=== PATIENT | female | born 1975 | race Caucasian/White ===

== ENCOUNTER 2025-05-16 12:01 | Emergency (ER) | payer OTHER, SELFPAY ==
--- NOTE | 2025-05-16 12:09 | ED_ITS ---
HPI - General Adult General Chief complaint: Unspecified Stated complaint: Blood Pressure Problem Time Seen by Provider: 05/16/25 12:23 Mode of arrival: ambulatory Limitations: no limitations History of Present Illness HPI narrative: 49-year-old female presents with concern for blood pressure she reports a diagnosis of high blood pressure, she takes metoprolol. She reports her blood pressure systolic is usually in the 130s. Reports she was at her specialist recently and her systolic was 160. She started checking her blood pressure at home and the numbers were similar. She denies headache, vision changes, dizziness. MD complaint: High blood pressure Related Data Home Medications ?Medication ?Instructions ?Recorded ?Confirmed ?Last Taken ?Type duloxetine 60 mg capsule,delayed mg PO 05/16/25 Unkno wn History release fenofibrate 160 mg tablet mg 05/16/25 Unknown History magnesium oxide 400 mg (241.3 mg mg 05/16/25 Unknown History magnesium) tablet metoprolol succinate 50 mg mg PO 05/16/25 Unknown His tory tablet,extended release 24 hr pantoprazole 40 mg tablet,delayed mg PO 05/16/25 Unkn own History release rosuvastatin 40 mg tablet mg 05/16/25 Unknown History Allergies Allergy/AdvReac Type Severity Reaction Status Date / Time No Known Allergies Allergy Verified 05/16/25 12:16 Review of Systems Review of Systems: CONSTITUTIONAL: Denies malaise, chills, sweats, or fever. EYES: Denies visual changes CARDIOVASCULAR: Denies chest pain, palpitations, or edema. RESPIRATORY: Denies cough or dyspnea. NEUROLOGIC: Denies numbness, weakness, or headache. All systems reviewed & are unremarkable except as noted in HPI and below PMFSH Comments At time of signature, agree with nursing past medical, surgical, social and family history. There is no relevant family history pertinent to the presenting complaint Exam Narrative: GENERAL: Well-appearing, well-nourished, and in no acute distress. HEAD: Normocephalic, atraumatic. EYES: PERRLA, sclera clear, and EOMI. ENT: Nares clear, no rhinorrhea or epistaxis. Mucous membranes moist. NECK: Supple. CHEST: No respiratory distress. Clear to auscultation. No bony deformities, no asymmetry. Speaks in full sentences. HEART: Regular rate and rhythm. No murmur heard. Normal peripheral pulses. SKIN: Warm, dry, no visible rash. NEURO: Alert and oriented x3. No focal deficits. Cranial nerves II through XII grossly intact PSYCH: Normal mood and affect Course Course Emergency Course: Patient is aware of diagnosis, understands and agrees to treatment plan. Anticipatory guidance given. Patient agrees to follow-up as directed and is aware of reasons to seek care at the emergency department. Portions of this record may have been created with voice recognition software Level of Care: Express Care Visit Vital Signs Vital signs: Reviewed. Medical Decision Making MDM Narrative Medical decision making narrative: The patient was evaluated by myself in the [facility] care. History is obtained from patient who is an independent historian and physical exam was performed.? Available medical records were reviewed at this time. ? Exam findings show no acute concerns or changes; patient is non-toxic appearing and is in no distress. Patient is appropriate for outpatient treatment and follow-up. ? I have evaluated and discussed social determinants of health with the patient that could potentially impact subsequent diagnosis and treatment plans. ? Differential diagnosis and treatment plan were discussed with the patient. Patient agrees with discussion and after shared medical decision making agrees with plan of care. All questions were answered to the patient's satisfaction. Critical Care Time Critical Care Time Critical Care Time: No Discharge Plan Discharge Clinical Impression: Hypertension Patient Disposition: Home Condition: Stable Instructions: Hypertension (ED) Additional Instructions: 1) Please follow-up with your primary care doctor in the next 1-2 days. 2) If you have any worsening of symptoms or any other urgent concerns please go to the ER. 3) please take an extra dose of metoprolol daily until you can see your primary care provider for further evaluation. Continue taking your other home medications as usual. 4) Please read and follow information included in discharge instructions. Patient Language: Maltese Prescriptions: No Action metoprolol succinate 50 mg tablet extended release 24 hr PO magnesium oxide 400 mg (241.3 mg magnesium) tablet pantoprazole 40 mg tablet,delayed release (DR/EC) PO rosuvastatin 40 mg tablet duloxetine 60 mg capsule,delayed release(DR/EC) PO fenofibrate 160 mg tablet Follow-up/Referrals: UNKNOWN,DOCTOR [Primary Care Provider] Stand Alone Forms: Work/School Release IP Time of Disposition: 12:31
[2025-05-16 12:10] VITALS: BP 208/79; PULSE 67; RESP 16; TEMP 36.2; O2SAT 99
[2025-05-16 12:23] VITALS: BP 170/84
--- OUTSIDE RECORDS SUMMARY | 2025-05-16 12:27 | XMS_ITS | Encounter Summary ---
Author Organization [facility] Address 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 - [address] [address] Pallavi Sinha MD [address] [facility] [address] [place] [address] documented as of this encounter Visit Diagnoses Diagnosis Other current maternal conditions classifiable elsewhere, antepartum- Primary documented in this encounter Care Teams Anaesthetic Technician Relationship Specialty Start Date End Date Serge Ley MD [address] [place] [address] Dr Berg [address] [place] [phone] PCP - General Internal Medicine 02/21/20 documented as of this encounter
--- OUTSIDE RECORDS SUMMARY | 2025-05-16 12:27 | XMS_ITS | Encounter Summary ---
Author Organization [facility] Address 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 [place] [address] Pallavi Sinha MD [address] [place] [address] documented as of this encounter Visit Diagnoses Not on filedocumented in this encounter Care Teams Community Administrator Relationship Specialty Start Date End Date Serge Ley MD [address] [place] [address] Dr [address] [place] [address] PCP - General Internal Medicine 02/21/20 documented as of this encounter
--- OUTSIDE RECORDS SUMMARY | 2025-05-16 12:27 | XMS_ITS | Encounter Summary ---
Author Organization [facility] Address 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 [address] [place] [address] Pallavi Sinha MD [address] [place] [address] documented as of this encounter Visit Diagnoses Not on filedocumented in this encounter Care Teams Bricklayer Sewer Relationship Specialty Start Date End Date Serge Ley MD [address] [place] [address] Dr Berg [address] [place] [address] PCP - General Internal Medicine 02/21/20 documented as of this encounter
--- OUTSIDE RECORDS SUMMARY | 2025-05-16 12:27 | XMS_ITS | Encounter Summary ---
Author Organization [facility] Address 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 [place] [address] Pallavi Sinha MD [address] [place] [address] documented as of this encounter Visit Diagnoses Not on filedocumented in this encounter Care Teams Ditch Digger Relationship Specialty Start Date End Date Serge Ley MD [address] [place] [address] Dr Berg [address] [place] [address] PCP - General Internal Medicine 02/21/20 documented as of this encounter
--- OUTSIDE RECORDS SUMMARY | 2025-05-16 12:27 | XMS_ITS | Encounter Summary ---
Author Organization [facility] Address 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 [facility] 300 [place] [address] Pallavi Sinha MD [address] [address] documented as of this encounter Visit Diagnoses Not on filedocumented in this encounter Care Teams Drum Tester Relationship Specialty Start Date End Date Serge Ley MD [address] [place] [address] Dr Berg [address] [place] [phone] PCP - General Internal Medicine 02/21/20 documented as of this encounter
--- OUTSIDE RECORDS SUMMARY | 2025-05-16 12:27 | XMS_ITS | Encounter Summary ---
Author Organization [facility] Address [address] [place] [address] Care Team Providers Care Senior Process Engineer Name Role Phone Serge Ley MD Primary Care Provider Encounter Details Date Type Department Care Team (Late Contact Info) Description 04/22/2007 Outpatient Historical [facility] [id number] [place], [place] [address] [place] [address] Bre Stuart MD [address] [facility] [address] [place] [address] Social History Tobacco Use Types Packs/Day Years Used Date Smoking Tobacco: Never Assessed Comments Unknown Sex and Gender Information Value Date Recorded Sex Assigned at Not on file 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 Women's Health - [facility] [address] [place] [address] Pallavi Sinha MD [address] [facility] 300 [place] [address] documented as of this encounter Visit Diagnoses Not on filedocumented in this encounter Care Teams Senior Process Engineer Relationship Specialty Start Date End Date Serge Ley MD [address] [place] [address] Dr [address] [place] [address] PCP - General Internal Medicine 02/21/20 documented as of this encounter
--- OUTSIDE RECORDS SUMMARY | 2025-05-16 12:27 | XMS_ITS | Encounter Summary ---
Author Organization [facility] Address 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 300 [place] [address] Pallavi Sinha MD [address] [address] documented as of this encounter Visit Diagnoses Not on filedocumented in this encounter Care Teams Plastic Extruding Machine Operator Relationship Specialty Start Date End Date Serge Ley MD [address] [place] [address] Dr Berg [address] [place] [phone] PCP - General Internal Medicine 02/21/20 documented as of this encounter
--- OUTSIDE RECORDS SUMMARY | 2025-05-16 12:27 | XMS_ITS | Encounter Summary ---
Author Organization [facility] Address [address] [place] [address] Care Team Providers Care Slip Cover Estimator Name Role Phone Serge Ley MD Primary Care Provider Encounter Details Date Type Department Care Team (Late Contact Info) Description 08/02/2007 Outpatient Historical 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 [place] [address] Pallavi Sinha MD [address] [facility] 300 [place] [address] documented as of this encounter Visit Diagnoses Not on filedocumented in this encounter Care Teams Slip Cover Estimator Relationship Specialty Start Date End Date Serge Ley MD [address] [place] [address] Dr Berg [address] [place] [phone] PCP - General Internal Medicine 02/21/20 documented as of this encounter
--- OUTSIDE RECORDS SUMMARY | 2025-05-16 12:27 | XMS_ITS | Encounter Summary ---
Author Organization [facility] Address [address] [place] [address] Care Team Providers Care Litigation Support Analyst Name Role Phone Serge Ley MD Primary Care Provider Encounter Details Date Type Department Care Team (Late Contact Info) Description 06/07/2007 Outpatient Historical [facility] Maternal and Ground [address] [place] [address] Jonnie Stearns MD [address] [facility] [address], [place] [address] Social History Tobacco Use Types Packs/Day Years Used Date Smoking Tobacco: Never Assessed Comments Unknown Sex and Gender Information Value Date Recorded Sex Assigned at Not on file Legal Sex Female 5:25 AM COMB 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 [place] [address] Pallavi Sinha MD [address] [facility] 300 [place] [address] documented as of this encounter Visit Diagnoses Not on filedocumented in this encounter Care Teams Litigation Support Analyst Relationship Specialty Start Date End Date Serge Ley MD [address] [place] [address] Dr [address] [place] [phone] PCP - General Internal Medicine 02/21/20 documented as of this encounter
--- OUTSIDE RECORDS SUMMARY | 2025-05-16 12:27 | XMS_ITS | Encounter Summary ---
Author Organization [facility] Address [address] [place] [address] Care Team Providers Care Rn Home Health Name Role Phone Serge Ley MD Primary Care Provider Encounter Details Date Type Department Care Team (Late Contact Info) Description 05/24/[address] 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 [place] [address] Pallavi Sinha MD [address] [place] [address] documented as of this encounter Visit Diagnoses Not on filedocumented in this encounter Care Teams Rn Home Health Relationship Specialty Start Date End Date Serge Ley MD [address] [place] [address] Dr Berg [address] [place] [address] PCP - General Internal Medicine 02/21/20 documented as of this encounter
--- OUTSIDE RECORDS SUMMARY | 2025-05-16 12:28 | XMS_ITS | Clinical Summary ---
Author Organization [facility] Address [address] [place] [address] Phone Care Team Providers Care Batch Maker Name Role Phone Serge Ley MD Primary Care Provider Allergies Active Allergy Reactions Criticality Noted Date Comments Sulfamethoxazole-Trimethoprim Hives High 2008 Medications carBAMazepine (TEGretol) 200 mg tablet TK 1 T PO TID 0 Active ergocalciferol (VITAMIN D2) 50,000 unit capsule TK 2 CS PO Q 7 DAYS 0 Active levonorgestreL (Mirena) 21 mcg/24 hours (8 yrs) 52 mg IUD by Intrauterine route. Active bempedoic acid-ezetimibe (Nexlizet) 180-10 mg Tablet 1 tablet(s), Oral, daily, 90 tablet(s), Tablet(s), 3, 3, [id number], [id number], 168, cm, 05/04/24 14:52:00 CDT, Height, 119, kg, 05/04/24 14:52:00 CDT, Weight 4 Active DULoxetine (CYMBALTA) 60 mg Capsule, Delayed Release(E.C.) Take 60 mg by mouth daily. Active METOPROLOL SUCCINATE ORAL Take by mouth. Active triamcinolone acetonide (KENALOG) 0.1 % Ointment Apply to affected area 2 times daily. 30 Gram 5 Active Active Problems Problem Noted Date Diagnosed Date Other psoriasis 01/10/2013 Migraines 04/11/2011 Encounters Date Type Department Care Team Description 05/09/2025 External Device Data STL ABSTRACTION Provider, Abstract 05/02/2025 External Device Data STL ABSTRACTION Provider, Abstract 05/02/2025 External Device Data ST[facility] ABSTRACTION Provider, Abstract 05/02/2025 External Device Data ST[facility] ABSTRACTION Provider, Abstract 04/25/2025 External Device Data STL ABSTRACTION Provider, Abstract 04/20/2025 3:20 PM CDT Office Visit [facility] [address] [place] [address] Pallavi Sinha MD Well woman exam with routine gynecological exam (Primary Dx); Encounter for screening breast examination and discussion of breast self examination; Breast cancer screening by mammogram 03/29/2025 External Device Data STL ABSTRACTION Provider, Abstract 03/21/2025 External Device Data STL ABSTRACTION Provider, Abstract 03/21/2025 External Device Data STL ABSTRACTION Provider, Abstract 03/20/2025 3:00 PM CDT - 03/20/2025 11:59 PM CDT Hospital Encounter [facility] [address] [address] [place] [address] Pallavi Sinha MD Discharge Disposition: Home or Self Care 03/20/2025 Results Follow-Up [facility] [address] [place] [address] Pallavi Sinha MD MAMMO 3D SHERIN SCREEN BILAT W OR WO CAD 03/08/2025 External Device Data STL ABSTRACTION Provider, Abstract 03/07/2025 External Device Data STL ABSTRACTION Provider, Abstract from Last 3 Months Family History Medical History Relation Name Comments Heart Disease Brother hiigh choleste rol Healthy Daughter Colon Cancer Father Metastatic Heart Disease Father high cholester ol Hypertension Father Other Father Dementia Heart Disease Mother high cholester ol Hypertension Mother Healthy Son Breast Cancer Neg Hx Ovarian Cancer Neg Hx Relation Name Status Comments Brother Alive Daughter Alive Father Alive Maternal Grandfather Maternal Grandmother Mother Alive Paternal Grandfather Paternal Grandmother Son Alive Social History Tobacco Use Types Packs/Day Years Used Date Smoking Tobacco: Every Day Cigarettes 0.5 15 Smokeless Tobacco: Never Tobacco Cessation:Ready to Q uit: No; Counseling Given: Yes Alcohol Use Standard Drinks/Week Comments Yes 0 (1 standard drink = 0.6 oz pure alcohol) 3-4 glasses of wine, 3-4 nights per week Feeling Safe Answer Date Recorded Are you in a relationship wi th someone who hurts you emotionally and/or physically? No 09/29/2024 Comments No Sex and Gender Information Value Date Recorded Sex Assigned at Not on file Legal Sex Female 5:25 AM DIRECTOR OF RADIOLOGY Gender Identity Not on file Sexual Orientation Not on file Last Filed Vital Signs Vital Sign Reading Time Taken Comments Blood Pressure 148/82 04/20/2025 3:40 PM CDT Pulse 95 09/29/2024 8:48 PM DIRECTOR OF RADIOLOGY Temperature 36.4 C (97.6 F) 09/29/2024 8:48 PM DIRECTOR OF RADIOLOGY Respiratory Rate 18 09/29/2024 8:48 PM DIRECTOR OF RADIOLOGY Oxygen Saturation 100% 09/29/2024 8:48 PM DIRECTOR OF RADIOLOGY Inhaled Oxygen Concentration - - Weight 101.2 kg (223 lb) 04/20/2025 3:40 PM CDT Height 170.2 cm (5' 7) 04/20/2025 3:40 PM CDT Body Mass Index 34.93 04/20/2025 3:40 PM CDT Plan of Treatment Upcoming Encounters Date Type Department Care Team (Late st Contact Info) Description 04/23/2026 1:40 PM CDT Office Visit [facility] [address] [place] [address] Pallavi Sinha MD [address] [place] [address] Health Maintenance Due Date Last Done Comments Pre-Diabetes and Diabetes Screening 1976 HEPATITIS B VACCINES (1 of 3 - 19+ 3-dose series) 1995 COLORECTAL SCREENING 2021 Colorectal Cancer Screening 2021 FIT-DNA Q 3 years 2021 FIT/FOBT Q 1 year 2021 Flex Sig/CT Colonography Q 5 years 2021 INFLUENZA VACCINE (#1) 2025 COVID-19 Vaccine (2024-2 6 season) 2025 08/23/2021, 12/27/2020, 12/06/2020 BREAST CANCER SCREENING 03/20/2026 03/20/20 25, 03/11/2024, 03/22/2020, Additional history exists PAP SMEAR 01/04/2027 01/05/2024, 03/24, 09/15/2017, Additional history exists DTAP/TDAP/TD VACCINES (3 - T d or Tdap) 12/17/2028 12/17/2018, 08/02/2013 CERVICAL CANCER SCREENING 01/04/2029 HPV/Cotest (21-29) 01/04/2029 01/05/2024, 0 04/09/2020, 09/15/2017 HPV/Cotest (30-65) 01/04/2029 01/05/2024, 0 04/09/2020, 09/15/2017 Procedures Procedure Name Priority Date/Time Associated Diagnosis Comments MAMMO 3D SHERIN SCREEN BILAT W OR WO CAD Routine 03/20/2025 3:17 PM CDT Encounter for mammogram to establish baseline mammogram CERV/VAG CYTO AGE BASED SCREEN PAP Routine 01/05/2024 2:53 PM CDT Well woman exam with routine gynecological exam Screening for cervical cancer from Last 3 Months or Most Recently Relevant to Health Maintenance Results * MAMMO 3D SHERIN SCREEN BILAT W OR WO CAD (03/20/2025 3:17 PM CDT) Anatomical Region Laterality Modality Breast Bilateral Mammography 03/20/2025 3:17 PM CDT Impressions 03/20/2025 3:37 PM CDT IMPRESSION: No suspicious findings to suggest malignancy in either breast. Annual mammography is recommended. OVERALL FINAL ASSESSMENT: BI-RADS CATEGORY 1: Negative. DICTATION LOCATION: [facility] 03/20/2025 3:37 PM CDT BILATERAL SCREENING DIGITAL MAMMOGRAM WITH 3D TOMOSYNTHESIS AND CAD DATE: 03/20/2025 3:17 PM HISTORY: Routine screening. TECHNIQUE: Full-field digital craniocaudal and mediolateral oblique projections of both breasts were obtained. Low-dose full-field digital breast tomosynthesis examination was performed with 2D and 3D acquisitions. Examination is read in conjunction with computer aided detection. COMPARISON: Prior available breast imaging exams. BREAST COMPOSITION: The breasts are heterogeneously dense, which may obscure small masses FINDINGS: No suspicious mass, suspicious microcalcifications, or architectural distortion is identified in either breast. Computer aided detection was used in the interpretation of this examination. Pallavi Sinha MD MAMMO ORDERABLES Final Result * CERV/VAG CYTO AGE BASED SCREEN PAP (01/05/2024 2:53 PM CDT) COMMENT (PAP): [facility] [place] Comment: This order for age-based cervical cancer and STI screening follows ACOG guidelines(PB 168, 140, CVN658). See individual assays for performing site location. CLINICAL INFORMATION [facility] Comment:None given LAST MENSTRUAL PERIOD [facility] [place] [facility] Comment:NONE GIVEN PREV PAP: [facility] [place] [facility] Comment:NONE GIVEN PREV BX: [facility] [place] Comment:NONE GIVEN SOURCE [facility] [place] Comment:Endocervix ADEQUACY: [facility] Comment: Satisfactory for evaluation. Endocervical/transformation zone component present. Age and/or menstrual status not provided PAP INTERP [facility] [place] Comment: Cytology Results: Negative for intraepithelial lesion or malignancy. COMMENT (PAP TEST) [facility] [place] Comment: This Pap test has been evaluated with computer assisted technology. SUPERVISOR PHOSPHORIC ACID: [facility] [place] Comment: BENITES, CT(ASCP) CT Screening location: [facility] [address] [place] [address] [address] [facility] Comment: EXPLANATORY NOTE: The Pap is a screening test for cervical cancer. It is not a diagnostic test and is subject to false negative and false positive results. It is most reliable when a satisfactory sample, regularly obtained, is submitted with relevant clinical findings and history, and when the Pap result is evaluated along with historic and current clinical information. HPV E6/E7 Not Detected Not Detected [facility] Comment: Methodology: Internal Combustion Engine Inspector-Mediated Amplification This assay detects E6/E7 viral messenger RNA (mRNA) from 14 high-risk HPV types (16,18,31,33,35,39,45,51,52,56,58,59,66,68). Cervical sources are required for HPV testing. If a vaginal source from a patient who has had a total hysterectomy with removal of cervix was submitted, please contact the testing laboratory for alternative testing options. For additional information, please refer to http://education.Event Innovation/faq/PCE783p1 (This link if provided for information/ educational purposes only.) Test Performed at: [facility] [id number] [facility] [place] [address] Reji ROTH Genital SWAB OF ENDOCERVIX / Unknown 01/05/2024 2:53 PM CDT 01/05/2024 11:19 PM CDT us Pallavi Sinha MD PATHOLOGY/CYTOLOGY ORDERABLES [facility] Result [facility] [phone] [facility] [address] [place] [address] from Last 3 Months or Most Recently Relevant to Health Maintenance Insurance GENERIC PAYOR Member Subscriber Plan / Payer (Ef fective 2025-Present) Name:Stacy Hampton Relation to Subscriber:Self Name:Stacy Hampton Payer ID:Not on file Type:Other Address: [place] [id number] Care Teams Batch Maker Relationship Specialty Start Date End Date Serge Ley MD [address] [place] [address] [place] [id number] PCP - General Internal Medicine 02/21/20
--- OUTSIDE RECORDS SUMMARY | 2025-05-16 12:28 | XMS_ITS | Encounter Summary ---
Author Organization [facility] Address [address] [place] [address] Care Team Providers Care Sugar Refinery Supervisor Name Role Phone Serge Ley MD Primary Care Provider Encounter Details Date Type Department Care Team (Late Contact Info) Description 03/20/2025 Results Follow-Up [facility] [address] [place] [address] Pallavi Sinha MD [address] [place] [address] MAMMO 3D SHERIN SCREEN BILAT W OR WO CAD Social History Tobacco Use Types Packs/Day Years Used Date Smoking Tobacco: Every Day Cigarettes 0.5 15 Smokeless Tobacco: Never Alcohol Use Standard Drinks/Week Comments Yes 0 [...] file Legal Sex Female 5:25 AM DIRECTOR BUSINESS SYSTEMS Gender Identity Not on file Sexual Orientation Not on file documented as of this encounter Plan of Treatment Upcoming Encounters Date Type Department Care Team (Late Contact Info) Description 04/23/2026 1:40 PM CDT Office Visit [facility] [address] [place] [address] Pallavi Sinha MD [address] [place] [address] documented as of this encounter Visit Diagnoses Not on filedocumented in this encounter Care Teams Sugar Refinery Supervisor Relationship Specialty Start Date End Date Serge Ley MD [address] [place] [address] PCP - General Internal Medicine 02/21/20 documented as of this encounter
--- OUTSIDE RECORDS SUMMARY | 2025-05-16 12:28 | XMS_ITS | Encounter Summary ---
Author Organization [facility] Address [address] [place] [address] Care Team Providers Care Golf Course Laborer Name Role Phone Serge Ley MD Primary Care Provider Encounter Details Date Type Department Care Team (Latest Contact Info) Description 09/23/2006 Outpatient Historical [facility] AND Gloria Santoyo MD NO ADDRESS ON FILE Other Psoriasis and Similar Disorders (Primary Dx) Social History Tobacco Use Types Packs/Day Years Used Date Smoking Tobacco: Never Assessed Comments Unknown Sex and Gender Information Value Date Recorded Sex Assigned at Not on file Legal Sex Female 5:25 AM TEAM PHYSICIAN Gender Identity Not on file Sexual Orientation Not on file documented as of this encounter Plan of Treatment Upcoming Encounters Date Type Department Care Team (Late st Contact Info) Description 04/23/2026 1:40 PM CDT Office Visit [facility] [address] [address] Pallavi Sinha MD [address] [place] [address] documented as of this encounter Procedures Procedure Name Priority Date/Time Associated Diagnosis Comments TSH WITH REFLEX FT4 AND FT3 Routine 09/23/2006 1:43 PM TEAM PHYSICIAN JOAN WITH TITER Routine 09/23/2006 1:43 PM TEAM PHYSICIAN CBC WITH DIFFERENTIAL Routine 09/23/2006 1:43 PM TEAM PHYSICIAN CBC WITH DIFFERENTIAL Routine 09/23/2006 1:43 PM TEAM PHYSICIAN SEDIMENTATION RATE Routine 09/23/2006 1: 43 PM TEAM PHYSICIAN C-REACTIVE PROTEIN Routine 09/23/2006 1: 43 PM TEAM PHYSICIAN LIPID PANEL Routine 09/23/2006 1:43 PM TEAM PHYSICIAN COMPREHENSIVE METABOLIC PANEL Routine 09/23/2006 1:43 PM TEAM PHYSICIAN documented in this encounter Results * JOAN WITH TITER (09/23/2006 1:43 PM TEAM PHYSICIAN) [facility] JOAN SCREEN NEGATIVE NEGATIVE INTERFACE SYSTEM Comment: Lab test performed by: [facility] [address] [place] [address] DR MILTON FOX MD 09/23/2006 1:43 PM TEAM PHYSICIAN us Gloria Yancey MD CHEMISTRY ORDERABLES Edit ed Performing Organization Address [facility] de Phone Number INTERFACE SYSTEM Refer to clinic/hospital department * CBC WITH DIFFERENTIAL (09/23/2006 1:43 PM TEAM PHYSICIAN) [facility] NEUTROPHILS 46 45 - 70 % INTERFAC E SYSTEM LYMPHOCYTES 40 16 - 45 % INTERFAC E SYSTEM MONOCYTES 9 3 - 13 % INTERFACE SYSTEM EOSINOPHILS 4 0 - 7 % INTERFAC E SYSTEM BASOPHILS 0 0 - 2 % INTERFACE SYSTEM NEUTROPHIL ABSOLUTE 3.37 1.90 - 7.00 K/uL INTERFACE SYSTEM LYMPHOCYTE ABSOLUTE 2.96 0.70 - 4.50 K/uL INTERFACE SYSTEM MONOCYTE ABSOLUTE 0.66 0.10 - 1.30 K/uL INTERFACE SYSTEM EOSINOPHIL ABSOLUTE 0.30 0.00 - 0.70 K/uL INTERFACE SYSTEM BASOPHILS ABSOLUTE 0.03 0.00 - 0.20 K/uL INTERFACE SYSTEM 09/23/2006 1:43 PM TEAM PHYSICIAN us Gloria Yancey MD HEMATOLOGY ORDERABLES Charles simi Performing Organization Address [facility] Co de Phone Number INTERFACE SYSTEM Refer to clinic/hospital department * (ABNORMAL) CBC WITH DIFFERENTIAL (09/23/2006 1:43 PM TEAM PHYSICIAN) Pathologist [facility] WBC 7.3 4.0 - 9.8 K/uL INTERFACE SYSTEM RBC 4.38 3.90 - 4.90 M/uL INTERFACE SYSTEM HEMOGLOBIN 12.5 11.8 - 14.8 g/dL INTERFACE SYSTEM HEMATOCRIT 37.0 35.5 - 44.0 % INTERFACE SYSTEM MCV 84.5 82.0 - 99.0 fL INTERFACE SYSTEM MCH 28.5 27.2 - 32.6 pg INTERFACE SYSTEM MCHC 33.8 31.5 - 35.5 % INTERFACE SYSTEM RDW 13.5 11.5 - 14.5 % INTERFACE SYSTEM RDW-STDEV 41.5 37.1 - 48.7 fL INTERFACE SYSTEM PLATELETS 306 140 - 350 K/uL INTERFACE SYSTEM MPV 9.0(L) 9.3 - 12.4 fL INTERFACE SYSTEM 09/23/2006 1:43 PM TEAM PHYSICIAN us Gloria Yancey MD HEMATOLOGY ORDERABLES Charles simi Performing Organization Address [facility] Phone Number INTERFACE SYSTEM Refer to clinic/hospital department * TSH WITH REFLEX FT4 AND FT3 (09/23/2006 1:43 PM TEAM PHYSICIAN) [facility] TSH 0.81 0.27 - 4.20 uU/mL INTERFACE SYSTEM 09/23/2006 1:43 PM TEAM PHYSICIAN us Gloria Yancey MD CHEMISTRY ORDERABLES Edit ed Performing Organization Address [facility] Phone Number INTERFACE SYSTEM Refer to clinic/hospital department * SEDIMENTATION RATE (09/23/2006 1:43 PM TEAM PHYSICIAN) [facility] ESR (SEDIMENTATION RATE) 10 0 - 20 mm/hr INTERFACE SYSTEM 09/23/2006 1:43 PM TEAM PHYSICIAN us Gloria Yancey MD HEMATOLOGY ORDERABLES Charles simi Performing Organization Address [facility] Phone Number INTERFACE SYSTEM Refer to clinic/hospital department * C-REACTIVE PROTEIN (09/23/2006 1:43 PM TEAM PHYSICIAN) CRP 0.2 0.0 - 0.8 mg/dL INTERFACE SYSTEM 09/23/2006 1:43 PM TEAM PHYSICIAN us Gloria Yancey MD CHEMISTRY ORDERABLES Edit ed Performing Organization Address [facility] de Phone Number INTERFACE SYSTEM Refer to clinic/hospital department * (ABNORMAL) LIPID PANEL (09/23/2006 1:43 PM TEAM PHYSICIAN) CHOLESTEROL 172 100 - 199 mg/dL INTERFACE SYSTEM TRIGLYCERIDE 194(H) 10 - 149 mg/dL INTERFACE SYSTEM HDL 39(L) 40 - 59 mg/dL INTERFACE SYSTEM CHOL/HDL RATIO 4.4 2.0 - 5.0 INTER FACE SYSTEM LDL CALCULATED 94 <=99 mg/dL INTERFACE SYSTEM LIPID PANEL COMMENT See Below INTERFACE SYSTEM Comment: The adult ATP and pediatric NCEP classifications for lipids are available on the [facility] Intranet at: [email or web address] Select: Lab Policies and Procedures Select: Reference Ranges - Lipids 09/23/2006 1:43 PM TEAM PHYSICIAN us Gloria Yancey MD CHEMISTRY ORDERABLES Edit ed Performing Organization Address [facility] Phone Number INTERFACE SYSTEM Refer to clinic/hospital department * COMPREHENSIVE METABOLIC PANEL (09/23/2006 1:43 PM TEAM PHYSICIAN) GLUCOSE 89 65 - 99 mg/dL INTERFACE SYSTEM CREATININE 0.59 0.51 - 0.95 mg/dL INTERFACE SYSTEM CALCIUM 8.6 8.4 - 10.2 mg/dL INTERFACE SYSTEM ALKALINE PHOSPHATASE 53 35 - 104 U/L INTERFACE SYSTEM AST 14 12 - 32 U/L INTERFACE SYSTEM ALT 21 0 - 31 U/L INTERFACE SYSTEM TOTAL PROTEIN 7.0 6.3 - 8.6 g/dL INTERFACE SYSTEM ALBUMIN 4.5 3.4 - 4.8 g/dL INTERFACE SYSTEM BILIRUBIN TOTAL 0.3 0.2 - 1.0 mg/dL INTERFACE SYSTEM BUN 12 6 - 20 mg/dL INTERFACE SYSTEM SODIUM 139 135 - 145 mmol/L INTERFACE SYSTEM POTASSIUM 4.2 3.5 - 4.9 mmol/L INTERFACE SYSTEM CHLORIDE 103 96 - 108 mmol/L INTERFACE SYSTEM CO2 26 22 - 30 mmol/L INTERFACE SYSTEM GFR, >60 >=60 mL/min/1.7 sq meter INTERFACE SYSTEM GFR >60 >=60 mL/min/1.7 sq meter INTERFACE SYSTEM Comment: Estimated GFR rate interpretative information for both Americans and non- Americans is available on the [facility] Intranet at: [email or web address] Select: Lab Policies and Procedures Select: Reference Ranges - GFR 09/23/2006 1:43 PM TEAM PHYSICIAN [facility] Tato Yancey MD CHEMISTRY ORDERABLES Edit ed INTERFACE SYSTEM Refer to clinic/hospital department documented in this encounter Visit Diagnoses Diagnosis Other psoriasis- Primary documented in this encounter Care Teams Golf Course Laborer Relationship Specialty Start Date End Date Serge Ley MD [address] [place] [address] Dr Berg [address] [place] [phone] PCP - General Internal Medicine 02/21/20 documented as of this encounter
--- OUTSIDE RECORDS SUMMARY | 2025-05-16 12:28 | XMS_ITS | Encounter Summary ---
Author Organization [facility] Address [address] [place] [address] Care Team Providers Care Line Analyst Name Role Phone Serge Ley MD Primary Care Provider Encounter Details Date Type Department Care Team (Latest Contact Info) Description 05/25/2005 Inpatient Historical HIS PATIENT IN A BED Dany Hussein MD NO ADDRESS ON FILE Tyler Haile MD [address] [facility] [address] [place] [address] FACE/BROW PRESENT-DELIVERED (Primary Dx) Social History Tobacco Use Types Packs/Day Years Used Date Smoking Tobacco: Never Assessed Comments Unknown Sex and Gender Information Value Date Recorded Sex Assigned at Not on file 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 [place] [address] Pallavi Sinha MD [address] [place] [address] documented as of this encounter Procedures Procedure Name Priority Date/Time Associated Diagnosis Comments RUBELLA IGG Routine 05/25/2005 10:19 PM CDT RPR Routine 05/25/2005 10:19 PM CDT HEPATITIS B SURFACE ANTIGEN Routine 05/25/2005 10:00 PM CDT DIC PROFILE Routine 05/25/2005 3:55 PM CDT CBC WITH DIFFERENTIAL Routine 05/25/2005 3:55 PM CDT CBC WITH DIFFERENTIAL Routine 05/25/2005 3:55 PM CDT URIC ACID Routine 05/25/2005 3:55 PM CDT AST Routine 05/25/2005 3:55 PM CDT LACTATE DEHYDROGENASE Routine 05/25/2005 3:55 PM CDT documented in this encounter Results * RUBELLA IGG (05/25/2005 10:19 PM CDT) [facility] RUBELLA IGG 2.06 EIA Value INTERFAC E SYSTEM Comment: EIA VALUE EXPLANATION OF TEST RESULTS --------- <0.91 NEGATIVE - NO RUBELLA IGG ANTIBODY DETECTED. 0.91 - 1.09 EQUIVOCAL > OR = 1.10 POSITIVE - RUBELLA IGG ANTIBODY DETECTED. THE PRESENCE OF RUBELLA IGG ANTIBODY SUGGESTS IMMUNIZATION OR PAST OR CURRENT INFECTION WITH RUBELLA VIRUS. Lab test performed by: [facility] [address] BERENICE BUCKLEY MD 05/25/2005 10:1 9 PM CDT Tyler Haile MD CHEMISTRY ORDERABLES Final Res ult INTERFACE SYSTEM Refer to clinic/hospital department * RPR (05/25/2005 10:19 PM CDT) [facility] RPR NON-REACT VALERIE NON-REACT VALERIE INTERFACE SYSTEM Comment: Lab test performed by: [employer] [facility] David BUCKLEY MD 05/25/2005 10:1 9 PM CDT Tyler Haile MD CHEMISTRY ORDERABLES Final Res ult Performing Organization Address [facility] Phone Number INTERFACE SYSTEM Refer to clinic/hospital department * HEPATITIS B SURFACE ANTIGEN (05/25/2005 10:00 PM CDT) Pathologist [facility] HEPATITIS B SURFACE AG Nonreactive Nonreactive INTERFACE SYSTEM Comment: Performed by [facility]. Results called to Rosita at 05/26/2005 10:50 PM and read back verified. 05/25/2005 10:0 0 PM CDT Tyler Haile MD CHEMISTRY ORDERABLES Final Res ult Performing Organization Address [facility] Phone Number INTERFACE SYSTEM Refer to clinic/hospital department * (ABNORMAL) CBC WITH DIFFERENTIAL (05/25/2005 3:55 PM CDT) NEUTROPHILS 71(H) 45 - 70 % INTERFAC E SYSTEM LYMPHOCYTES 21 16 - 45 % INTERFAC E SYSTEM MONOCYTES 7 3 - 13 % INTERFACE SYSTEM EOSINOPHILS 1 0 - 7 % INTERFAC E SYSTEM BASOPHILS 0 0 - 2 % INTERFACE SYSTEM NEUTROPHIL ABSOLUTE 8.90(H) 1.90 - 7.00 K/uL INTERFACE SYSTEM LYMPHOCYTE ABSOLUTE 2.65 0.70 - 4.50 K/uL INTERFACE SYSTEM MONOCYTE ABSOLUTE 0.89 0.10 - 1.30 K/uL INTERFACE SYSTEM EOSINOPHIL ABSOLUTE 0.13 0.00 - 0.70 K/uL INTERFACE SYSTEM BASOPHILS ABSOLUTE 0.01 0.00 - 0.20 K/uL INTERFACE SYSTEM 05/25/2005 3:55 PM CDT Tyler Haile MD HEMATOLOGY ORDERABLES Final Re sult Performing Organization Address [facility] Phone Number INTERFACE SYSTEM Refer to clinic/hospital department * (ABNORMAL) CBC WITH DIFFERENTIAL (05/25/2005 3:55 PM CDT) WBC 12.6(H) 4.0 - 9.8 K/uL INTERFACE SYSTEM RBC 4.04 3.90 - 4.90 M/uL INTERFACE SYSTEM HEMOGLOBIN 12.0 11.8 - 14.8 g/dL INTERFACE SYSTEM HEMATOCRIT 35.3(L) 35.5 - 44.0 % INTERFACE SYSTEM MCV 87.4 82.0 - 99.0 fL INTERFACE SYSTEM MCH 29.7 27.2 - 32.6 pg INTERFACE SYSTEM MCHC 34.0 31.5 - 35.5 % INTERFACE SYSTEM RDW 13.7 11.5 - 14.5 % INTERFACE SYSTEM RDW-STDEV 43.8 37.1 - 48.7 fL INTERFACE SYSTEM PLATELETS 224 140 - 350 K/uL INTERFACE SYSTEM MPV 10.5 9.3 - 12.4 fL INTERFACE SYSTEM 05/25/2005 3:55 PM CDT Tyler Haile MD HEMATOLOGY ORDERABLES Final Re sult INTERFACE SYSTEM Refer to clinic/hospital department * (ABNORMAL) DIC PROFILE (05/25/2005 3:55 PM CDT) PROTIME 12.8(L) 12.9 - 15.7 Seconds INTERFACE SYSTEM INR 0.9 0.9 - 1.1 INTERFACE SYSTEM Comment: INR Therapeutic Range: Adult: 2.0 - 3.0 for pulmonary embolism or prophylaxis against venous thrombosis or systemic embolization. 2.0 - 3.0 for patients with tissue heart valves. 2.5 - 3.5 for patients with mechanical heart valves or post CO. Pediatric (12 years and under): 1.5 - 3.0 Although the target range in children is not well established , INR values of 1.5 - 3.0 are recommended for most patients. Higher values have been used in children with prosthetic cardiac valves and hereditary clotting disorders. (<3 days) therapeutic ranges have not been established. PTT 27.0 25.0 - 35.0 Seconds INTERFACE SYSTEM Comment: PTT Therapeutic Range: Heparin Level PTT (seconds) <0.10 units/mL <45 0.10 - 0.30 units/mL 45 - 65 0.30 - 0.70 units/mL* 65 - 106* 0.70 - 1.00 units/mL 106 - 137 *corresponds to therapeutic range for unfractionated heparin FIBRINOGEN 614(H) 194 - 436 mg/dL INTERFACE SYSTEM D-DIMER QUANT 0.72(H) <=0.42 ug/mL FEU INTERFACE SYSTEM Comment: DVT Screen reference range <0.45 ug/mL FEU D. Dimer Interpretation: The reference range is not clearly established in uncomplicated pregnanc ies. Values above the upper limit of the reference range are common from the 31st to 40th week of . High negative predictive values for DVT have been reported with the current methodology, as part of a comprehensive medical examination, including risk stratification. 05/25/2005 3:55 PM CDT Tyler Haile MD HEMATOLOGY ORDERABLES Final Re sult Performing Organization Address [facility] Number INTERFACE SYSTEM Refer to clinic/hospital department * URIC ACID (05/25/2005 3:55 PM CDT) URIC ACID 5.4 2.3 - 6.6 mg/dL INTERFACE SYSTEM 05/25/2005 3:55 PM CDT Tyler Haile MD CHEMISTRY ORDERABLES Final Res ult Performing Organization Address [facility] INTERFACE SYSTEM Refer to clinic/hospital department * LACTATE DEHYDROGENASE (05/25/2005 3:55 PM CDT) LD (LACTATE DEHYDROGENASE) 144 135 - 214 U/L INTERFACE SYSTEM 05/25/2005 3:55 PM CDT Tyler Haile MD CHEMISTRY ORDERABLES Final Res ult Performing Organization Address [facility] Phone Number INTERFACE SYSTEM Refer to clinic/hospital department * AST (05/25/2005 3:55 PM CDT) AST 21 12 - 32 U/L INTERFAC E SYSTEM 05/25/2005 3:55 PM CDT Tyler Haile MD CHEMISTRY ORDERABLES Final Res ult INTERFACE SYSTEM Refer to clinic/hospital department documented in this encounter Visit Diagnoses Diagnosis face or brow presentation, delivered- Primary documented in this encounter Care Teams Line Analyst Relationship Specialty Start Date End Date Serge Ley MD [address] [facility] [address] [place] [phone] PCP - General Internal Medicine 02/21/20 documented as of this encounter
--- OUTSIDE RECORDS SUMMARY | 2025-05-16 12:28 | XMS_ITS | Encounter Summary ---
Author Organization [facility] Address 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 [place] [address] Pallavi Sinha MD [address] [place] [address] documented as of this encounter Visit Diagnoses Not on filedocumented in this encounter Care Teams Bindery Worker Relationship Specialty Start Date End Date Serge Ley MD [address] [place] [address] [address] [place] [address] PCP - General Internal Medicine 02/21/20 documented as of this encounter
--- OUTSIDE RECORDS SUMMARY | 2025-05-16 12:28 | XMS_ITS | Encounter Summary ---
Author Organization [facility] Address 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 [place] [address] Pallavi Sinha MD [address] [place] [address] documented as of this encounter Visit Diagnoses Not on filedocumented in this encounter Care Teams Fiber Artist Relationship Specialty Start Date End Date Serge Ley MD [address] [place] [address] [address] [place] [address] PCP - General Internal Medicine 02/21/20 documented as of this encounter
--- OUTSIDE RECORDS SUMMARY | 2025-05-16 12:28 | XMS_ITS | Encounter Summary ---
Author Organization [facility] Address 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 [address] Pallavi Sinha MD [address] [address] documented as of this encounter Procedures Procedure Name Priority Date/Time Associated Diagnosis Comments CBC WITH DIFFERENTIAL Routine 12/22/2007 1:50 PM CDT URINALYSIS W/REFLEX MICROSCOPIC Routine 12/22/2007 1:50 PM CDT TYPE AND SCREEN Routine 12/22/2007 1:50 PM CDT documented in this encounter Results * TYPE AND SCREEN (12/22/2007 1:50 PM CDT) HISTORY CHECK History Checked [facility] SPECIMEN LIFE 3 days from drawdate [facility] ABO/RH TYPE A Positive [facility] ANTIBODY SCREEN Negative [facility] Blood specimen (specimen) 12/22/2007 1:50 PM CDT us Dany Hussein MD BLOOD BANK ORDERABLES Edited [facility] [address] [place] [address] * (ABNORMAL) URINALYSIS (12/22/2007 1:50 PM CDT) RBC UA 1 0 - 4 /HPF [facility] SPECIFIC GRAVITY UA 1.021 1.001 - 1.035 [facility] BLOOD UA Negative Negative [facility] GLUCOSE UA Negative Negative [facility] TRANSITIONAL EPI 2-5 /HPF [facility] COLOR UA Yellow [facility] NITRITE UA Negative Negative [facility] UROBILINOGEN UA <1 <=1 mg/dL [facility] BACTERIA UA 4+(A) None Seen /HPF [facility] PH UA 5.5 5.0 - 8.0 [facility] KETONES UA 3+(A) Negative [facility] WBC UA 27(H) 0 - 5 /HPF [facility] CLARITY UA Cloudy(A) Clear [facility] PROTEIN UA 1+(A) Negative [facility] EPITHELIAL CELLS, URINE Many /HPF [facility] BILIRUBIN UA Negative Negative [facility] LEUKOCYTE ESTERASE UA 2+(A) Negative [facility] Urine specimen (specimen) 12/22/2007 1:50 PM CDT 12/22/2007 1:51 PM CDT us Dany Hussein MD URINE ORDERABLES Final Resul t [facility] [address] [place] [address] * (ABNORMAL) CBC WITH DIFFERENTIAL (12/22/2007 1:50 PM CDT) RBC 3.96 3.90 - 4.90 M/uL [facility] MCHC 34.1 31.5 - 35.5 % [facility] MCV 87.4 82.0 - 99.0 fL [facility] PLATELETS 218 140 - 350 K/uL [facility] HEMOGLOBIN 11.8 11.8 - 14.8 g/dL [facility] RDW 13.9 11.5 - 14.5 % [facility] WBC 9.2 4.0 - 9.8 K/uL [facility] MCH 29.8 27.2 - 32.6 pg [facility] MPV 9.9 9.3 - 12.4 fL [facility] HEMATOCRIT 34.6(L) 35.5 - 44.0 % [facility] RDW-STDEV 43.8 37.1 - 48.7 fL [facility] LYMPHOCYTES 26 16 - 45 % [facility] LYMPHOCYTE ABSOLUTE 2.36 0.70 - 4.50 K/uL [facility] BASOPHILS 0 0 - 2 % [facility] BASOPHILS ABSOLUTE 0.02 0.00 - 0.20 K/uL [facility] MONOCYTES 6 3 - 13 % [facility] MONOCYTE ABSOLUTE 0.53 0.10 - 1.30 K/uL [facility] NEUTROPHILS 66 45 - 70 % [facility] NEUTROPHIL ABSOLUTE 6.10 1.90 - 7.00 K/uL [facility] EOSINOPHILS 2 0 - 7 % [facility] EOSINOPHIL ABSOLUTE 0.17 0.00 - 0.70 K/uL [facility] Blood specimen (specimen) 12/22/2007 1:50 PM CDT 12/22/2007 1:50 PM CDT us Dany Hussein MD HEMATOLOGY ORDERABLES Edited [facility] [address] [place] [address] documented in this encounter Visit Diagnoses Diagnosis delivery, without mention of indication, delivered, with or without mention of antepartum condition documented in this encounter Care Teams Spindle Carver Relationship Specialty Start Date End Date Serge Ley MD [address] [facility] [place] [address] PCP - General Internal Medicine 02/21/20 documented as of this encounter
--- OUTSIDE RECORDS SUMMARY | 2025-05-16 12:28 | XMS_ITS | Encounter Summary ---
Author Organization [facility] Address 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 [place] [address] Pallavi Sinha MD [address] [place] [address] documented as of this encounter Visit Diagnoses Not on filedocumented in this encounter Care Teams Wind Commissioning Technician Relationship Specialty Start Date End Date Serge Ley MD [address] [place] [address] [address] [place] [address] PCP - General Internal Medicine 02/21/20 documented as of this encounter
--- OUTSIDE RECORDS SUMMARY | 2025-05-16 12:28 | XMS_ITS | Encounter Summary ---
Author Organization [facility] Address 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 [place] [address] Pallavi Sinha MD [address] [place] [address] documented as of this encounter Visit Diagnoses Not on filedocumented in this encounter Care Teams Java Analyst Relationship Specialty Start Date End Date Serge Ley MD [address] [place] [address] [address] [place] [address] PCP - General Internal Medicine 02/21/20 documented as of this encounter
--- OUTSIDE RECORDS SUMMARY | 2025-05-16 12:28 | XMS_ITS | Encounter Summary ---
Author Organization [facility] Address 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 [place] [address] Pallavi Sinha MD [address] [place] [address] documented as of this encounter Visit Diagnoses Not on filedocumented in this encounter Care Teams Special Delivery Clerk Relationship Specialty Start Date End Date Serge Ley MD [address] [place] [address] [address] [place] [address] PCP - General Internal Medicine 02/21/20 documented as of this encounter
--- OUTSIDE RECORDS SUMMARY | 2025-05-16 12:28 | XMS_ITS | Encounter Summary ---
Author Organization [facility] Address [address] [place] [address] Care Team Providers Care Interior Design Professor Name Role Phone Serge Ley MD Primary Care Provider Encounter Details Date Type Department Care Team (Late Contact Info) Description 05/20/[address] 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 [place] [address] Pallavi Sinha MD [address] [place] [address] documented as of this encounter Visit Diagnoses Not on filedocumented in this encounter Care Teams Interior Design Professor Relationship Specialty Start Date End Date Serge Ley MD [address] [place] [address] [address] [place] [address] PCP - General Internal Medicine 02/21/20 documented as of this encounter
--- OUTSIDE RECORDS SUMMARY | 2025-05-16 12:28 | XMS_ITS | Encounter Summary ---
Author Organization [facility] Address 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 [place] [address] Pallavi Sinha MD [address] [place] [address] documented as of this encounter Visit Diagnoses Not on filedocumented in this encounter Care Teams Ring Attacher Relationship Specialty Start Date End Date Serge Ley MD [address] [place] [address] [address] [place] [address] PCP - General Internal Medicine 02/21/20 documented as of this encounter
--- OUTSIDE RECORDS SUMMARY | 2025-05-16 12:28 | XMS_ITS | Encounter Summary ---
Author Organization [facility] Address [address] [place] [address] Care Team Providers Care Shoulder Puncher Name Role Phone Serge Ley MD Primary Care Provider Encounter Details Date Type Department Care Team (Late Contact Info) Description 10/11/2007 Outpatient Historical [facility] [address] [place] [address] Jonnie Stearns MD [address] [address] Social History Tobacco Use Types Packs/Day Years Used Date Smoking Tobacco: Never Assessed Comments Unknown Sex and Gender Information Value Date Recorded Sex Assigned at Not on file 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 [address] [place] [address] Pallavi Sinha MD [address] [facility] 300 [place] [address] documented as of this encounter Visit Diagnoses Not on filedocumented in this encounter Care Teams Shoulder Puncher Relationship Specialty Start Date End Date Serge Ley MD [address] [place] [address] Dr [address] [place] [phone] PCP - General Internal Medicine 02/21/20 documented as of this encounter
--- OUTSIDE RECORDS SUMMARY | 2025-05-16 12:28 | XMS_ITS | Encounter Summary ---
Author Organization [facility] Address 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 [address] [place] [address] Pallavi Sinha MD [address] [facility] [address] [place] [address] documented as of this encounter Visit Diagnoses Not on filedocumented in this encounter Care Teams Personalized Living Assistant Relationship Specialty Start Date End Date Serge Ley MD [address] [place] [address] [address] [place] [address] PCP - General Internal Medicine 02/21/20 documented as of this encounter
--- OUTSIDE RECORDS SUMMARY | 2025-05-16 12:28 | XMS_ITS | Encounter Summary ---
Author Organization [facility] Address [address] [place] [address] Care Team Providers Care Bar Machine Operator Multiple Spindle Name Role Phone Serge Ley MD Primary Care Provider Encounter Details Date Type Department Care Team (Late Contact Info) Description 02/27/2000 Outpatient Historical [facility] [id number] [place] [address] [address] [place] [address] Gloria Yancey MD NO ADDRESS ON FILE Social History Tobacco Use Types Packs/Day Years Used Date Smoking Tobacco: Never Assessed Comments Unknown Sex and Gender Information Value Date Recorded Sex Assigned at Not on file 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 [place] [address] Pallavi Sinha MD [address] [place] [address] documented as of this encounter Visit Diagnoses Not on filedocumented in this encounter Care Teams Bar Machine Operator Multiple Spindle Relationship Specialty Start Date End Date Serge Ley MD [address] [place] [address] Dr Berg [address] [place] [address] PCP - General Internal Medicine 02/21/20 documented as of this encounter
--- OUTSIDE RECORDS SUMMARY | 2025-05-16 12:28 | XMS_ITS | Encounter Summary ---
Author Organization [facility] Address 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 [place] [address] Pallavi Sinha MD [address] [place] [address] documented as of this encounter Visit Diagnoses Not on filedocumented in this encounter Care Teams Disassembler Product Relationship Specialty Start Date End Date Serge Ley MD [address] [place] [address] Dr Berg [address] [place] [address] PCP - General Internal Medicine 02/21/20 documented as of this encounter
--- OUTSIDE RECORDS SUMMARY | 2025-05-16 12:28 | XMS_ITS | Encounter Summary ---
Author Organization [facility] Address 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 [place] [address] Pallavi Sinha MD [address] [place] [address] documented as of this encounter Visit Diagnoses Not on filedocumented in this encounter Care Teams Saxophone Player Relationship Specialty Start Date End Date Serge Ley MD [address] [place] [address] Dr Berg [address] [place] [address] PCP - General Internal Medicine 02/21/20 documented as of this encounter
--- OUTSIDE RECORDS SUMMARY | 2025-05-16 12:28 | XMS_ITS | Encounter Summary ---
Author Organization [facility] Address [address] [place] [address] Care Team Providers Care Group Social Worker Name Role Phone Serge Ley MD Primary Care Provider Encounter Details Date Type Department Care Team (Late st Contact Info) Description 11/03/2007 Outpatient Historical 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 [address] Pallavi Sinha MD [address] [address] documented as of this encounter Procedures Procedure Name Priority Date/Time Associated Diagnosis Comments US BIOPHYSICAL PROF W NST Timed Study 11/19/2007 3:43 PM CDT US OB LTD 1 OR MORE FETUSES Timed Study 11/19/2007 3:43 PM CDT US BIOPHYSICAL PROF W NST Timed Study 11/05/2007 4:45 PM CDT US OB LTD 1 OR MORE FETUSES Timed Study 11/05/2007 4:45 PM CDT documented in this encounter Results * US BIOPHYSICAL PROFILE (11/19/2007 3:43 PM CDT) Anatomical Region Laterality Modality Pelvis Other Narrative 11/19/2007 3:43 PM CDT Results in [facility] Procedure Note 03/01/2009 Results in [facility] Dany Hussein MD US ORDERABLES Final Result * US OB LTD 1 OR MORE FETUSES (11/19/2007 3:43 PM CDT) Anatomical Region Laterality Modality Pelvis Other Narrative 11/19/2007 3:43 PM CDT Results in [facility] Procedure Note 03/01/2009 Results in [facility] Dany Hussein MD US ORDERABLES Final Result * US OB LTD 1 OR MORE FETUSES (11/05/2007 4:45 PM CDT) Anatomical Region Laterality Modality Pelvis Other Narrative 11/05/2007 4:45 PM CDT Results in [facility] Procedure Note 03/01/2009 Results in [facility] Dany Hussein MD US ORDERABLES Final Result * US BIOPHYSICAL PROFILE (11/05/2007 4:45 PM CDT) Anatomical Region Laterality Modality Pelvis Other Narrative 11/05/2007 4:45 PM CDT Results in [facility] Procedure Note 03/01/2009 Results in [facility] Dany Hussein MD US ORDERABLES Final Result documented in this encounter Visit Diagnoses Not on filedocumented in this encounter Care Teams Group Social Worker Relationship Specialty Start Date End Date Serge Ley MD [address] [place] [address] Dr Berg [address] [place] [phone] PCP - General Internal Medicine 02/21/20 documented as of this encounter
--- OUTSIDE RECORDS SUMMARY | 2025-05-16 12:28 | XMS_ITS | Clinical Summary ---
Author Organization [facility] Address [address] [facility] [place] [address] Care Team Providers Care Letter Of Credit Document Examiner Name Role Phone Serge Ley MD Primary Care Provider [phone] Source Comments [facility],non-owned Affiliates and Associated Physician Practices is amultiple site organization consisting of ambulatory clinics and hospital sitesin [place], [place], [place] and [place]. This disclosure is being madepursuant to the Care Everywhere program and may not contain all information available regarding this patient. Last updated 18.[facility] Allergies Active Allergy Reactions Criticality Noted Date Comments Sulfamethoxazole W-Trimethoprim 04/24 Medications * Be aware that medications may not be up to date on this document. Alwaysverify current medications with the patient. CARBAMAZEPINE PO Take 200 mg by mouth 2 times daily 1 tab in morning and 2 tabs at night Active fenofibrate (TRICOR) 145 MG tablet Take 1 (one) tablet by mouth once daily Active Qmhsl-8-Blbf Eth Est, Dietary, 1 G Active albuterol HFA (PROVENTIL;VENT PADMINI;PROAIR) 108 (90 BASE) MCG/ACT inhaler Inhale 2 Puffs by mouth every 4 hours as needed for Shortness of Breath, Wheezing or Cough 1 Inhaler 7 Active methylPREDNISol one (MEDROL DOSEPAK) 4 MG tablet Take by mouth as directed 1 Each 7 Active DULoxetine (Cymbalta) 60 MG capsule Take 1 (one) capsule by mouth once daily Active pantoprazole (Protonix) 40 MG packet Take 1 (one) packet by mouth once daily Active Bempedoic Acid (Nexletol) 180 MG TABS Take 180 mg by mouth once daily Active morphine CR 12hr (MS Contin) 15 MG tablet Take 1 (one) tablet by mouth every 12 hours Active metoprolol succinate XL 24hr (Toprol XL) 50 MG tablet Take 1 (one) tablet by mouth once daily Active rosuvastatin (Crestor) 40 MG tablet Take 1 (one) tablet by mouth once daily Active hydrocortisone (Cortisone -5) 0.5 % cream Apply to affected area 3 times daily as needed (Pruritus) 56 g Active calamine (Calamine) lotion Apply to affected area 3 times daily 177 mL Active magnesium oxide (Mag-Ox) 400 MG tablet Take 1 (one) tablet by mouth once daily 30 tablet 1 Active potassium chloride ER (K-TAB) 20 MEQ tablet Take 1 (one) tablet by mouth daily with breakfast 30 tablet 1 Active Active Problems Problem Noted Date Diagnosed Date Erythrodermic psoriasis 09/30/2024 Hyponatremia 09/30/2024 Uremia 09/30/2024 TREY (acute kidney injury) 09/30/2024 Hypertension Diverticula of colon Depression with anxiety Hyperlipidemia Social History Tobacco Use Types Packs/Day Years Used Date Smoking Tobacco: Every Day Cigarettes Smokeless Tobacco: Never AUDIT-C Answer Date Recorded Q1: How often do you have a drink containing alc ohol? 2-3 times a week 09/30/2024 Q2: How many drinks containi ng alcohol do you have on a typical day when you are drinking? 1 or 2 09/30/2024 Frequency of Binge Drinking Not on file 02/2025 Overall Financial Resource Strain (CARDIA) Answe r Date Recorded How hard is it for you to pa y for the very basics like food, housing, medical care, and heating? Not hard at all 09/30/2024 [facility] [place] [facility] Occup[facility] ional [facility] - Occupational Stress Questionnaire Answer Date Recorded Do you feel stress - tense, restless, nervous, or anxious, or unable to sleep at night because your mind is troubled all the time - these days? To some extent 09/30/2024 Hunger Vital Sign Answer Date Recorded Within the past 12 months, y ou worried that your food would run out before you got the money to buy more. Never true 09/30/19 25 Within the past 12 months, t he food you bought just didn't last and you didn't have money to get more. Never true 09/30/2024 PRAPARE - Transportation Answer Date Re corded In the past 12 months, has l ack of transportation kept you from medical appointments or from getting medications? No 02/2025 In the past 12 months, has l ack of transportation kept you from meetings, work, or from getting things needed for daily living? No 09/30/2024 Housing Stability Vital Sign Answer Tin e Recorded In the last 12 months, was t here a time when you were not able to pay the mortgage or rent on time? No 09/30/2024 In the past 12 months, how m any times have you moved where you were living? 0 09/30/2024 At any time in the past 12 m [facility], were you homeless or living in a longterm (including now)? No 09/30/2024 Comments Unknown Sex and Gender Information Value Date Recorded Sex Assigned at Not on file Legal Sex Female 10:31 AM CDT Gender Identity Not on file Sexual Orientation Not on file Last Filed Vital Signs Vital Sign Reading Time Taken Comments Blood Pressure 132/83 10/04/2024 12:24 PM TRACK VEHICLE REPAIRER Pulse 89 10/04/2024 12:24 PM TRACK VEHICLE REPAIRER Temperature 36.8 C (98.2 F) 10/04/2024 12:24 PM TRACK VEHICLE REPAIRER Respiratory Rate 18 10/04/2024 12:24 PM TRACK VEHICLE REPAIRER Oxygen Saturation 94% 10/04/2024 12:24 PM TRACK VEHICLE REPAIRER Inhaled Oxygen Concentration - - Weight 98 kg (216 lb) 10/04/2024 6:54 AM TRACK VEHICLE REPAIRER Height 170.2 cm (5' 7) 09/29/2024 10:42 PM TRACK VEHICLE REPAIRER Body Mass Index 33.83 09/29/2024 10:42 PM TRACK VEHICLE REPAIRER Plan of Treatment Health Maintenance Due Date Last Done Comments COLOGUARD (AGES 45-75) - COLON CA SCREENING 1976 COLON MONITORING 1976 COLONOSCOPY - COLON CA SCREENING 1976 CT COLONOGRAPHY - COLON CA SCREENING 1976 Colorectal Cancer Screening 1976 FIT - COLON CA SCREENING 1976 FLEX SIG - COLON CA SCREENING 1976 HIV SCREENING 1991 HEPATITIS C SCREENING 09/29/1994 DTAP/TDAP/TD VACCINES (1 - Tdap) 1995 HEPATITIS B VACCINE (1 of 3 - 19+ 3-dose series) 1995 PNEUMOCOCCAL VACCINE (1 of 2 - PCV) 1995 PAP SMEAR 1997 DEPRESSION SCREENING 08/24/2024 COVID-19 VACCINE ( - season) 2025 08/23/2021, 12/27/2020, 12/06/2020 INFLUENZA VACCINE (#1) 2025 MAMMOGRAM 03/11/2026 03/11/2024, 02/21, 03/22/2020 ZOSTER VACCINE (1 of 2) 2026 SCREENING FOR DIABETES 10/04/2027 , 2024, 10/02/2024, Additional history exists HIB VACCINE Aged Out No longer eligi ble based on patient's age to complete this topic HPV VACCINE Aged Out No longer eligi ble based on patient's age to complete this topic MENINGOCOCCAL (Group B) VACCINE SHARED DECISION-MAKING Aged Out No longer eligible based on patient's age to complete this topic MENINGOCOCCAL GROUPS A/C/Y/W VACCINE Aged Out No longer eligible based on patient's age to complete this topic Procedures Procedure Name Priority Date/Time Associated Diagnosis Comments RENAL FUNCTION PANEL Routine 10/04/2024 7:34 AM TRACK VEHICLE REPAIRER from Last 3 Months or Most Recently Relevant to Health Maintenance Results * (ABNORMAL) RENAL FUNCTION PANEL (10/04/2024 7:34 AM TRACK VEHICLE REPAIRER) Glucose 139(H) 70 - 99 mg/dL 10/04/2024 8:01 AM TRACK VEHICLE REPAIRER [facility] Sodium 136 136 - 145 mmol/L 10/04/2024 8:01 AM TRACK VEHICLE REPAIRER [facility] Potassium 4.5 3.5 - 5.1 mmol/L 10/04/2024 8:01 AM TRACK VEHICLE REPAIRER [facility] Chloride 101 98 - 107 mmol/L 10/04/2024 8:01 AM TRACK VEHICLE REPAIRER [facility] CO2 23 22 - 29 mmol/L 10/04/2024 8:01 AM TRACK VEHICLE REPAIRER [facility] Calcium 10.2 8.4 - 10.4 mg/dL 10/04/2024 8:01 AM [facility] Anion Gap 12 6 - 16 mmol/L 10/04/2024 8:01 AM [facility] BUN 67(H) 5.3 - 18.7 mg/dL 10/04/2024 8:01 AM [facility] Creatinine 2.31(H) 0.57 - 1.11 mg/dL 10/04/2024 8:01 AM [facility] Albumin 3.7 3.4 - 5.0 gm/dL 10/04/2024 8:01 AM [facility] Phosphorus 1.8(L) 2.5 - 4.5 mg/dL 10/04/2024 8:01 AM [facility] eGFR by CKD-EPI 25(L) >=90 mL/min/1.7 3 m2 10/04/2024 8:01 AM [facility] Blood BLOOD SPECIMEN / Unknown Lab Venipuncture / Unknown 10/04/2024 7:34 AM TRACK VEHICLE REPAIRER 10/04/2024 7:38 AM [facility] us Valery Henley MD LAB - CHEMISTRY ORDERABLES F inal Result [facility] [address] [place] [address] from Last 3 Months or Most Recently Relevant to Health Maintenance Insurance [facility] Advance Directives * Full Code (Latest Code Status on File) Date Activated Date Inactivated Comments 09/30/2024 3:53 AM 10/04/2024 2:50 PM Care Teams Letter Of Credit Document Examiner Relationship Specialty Start Date End Date Serge Ley MD [address] [place] [address] [place] [address] PCP - General Internal Medicine 09/29/24
--- OUTSIDE RECORDS SUMMARY | 2025-05-16 12:28 | XMS_ITS | Encounter Summary ---
Author Organization [facility] Address 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 [facility] [address] [place] [address] Pallavi Sinha MD [address] [address] documented as of this encounter Visit Diagnoses Not on filedocumented in this encounter Care Teams Anodic Operator Relationship Specialty Start Date End Date Serge Ley MD [address] [place] [address] Dr Berg [address] [place] [phone] PCP - General Internal Medicine 02/21/20 documented as of this encounter
--- OUTSIDE RECORDS SUMMARY | 2025-05-16 12:28 | XMS_ITS | Encounter Summary ---
Author Organization [facility] Address 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 [place] [address] Pallavi Sinha MD [address] [place] [address] documented as of this encounter Visit Diagnoses Not on filedocumented in this encounter Care Teams Lathe Turner Relationship Specialty Start Date End Date Serge Ley MD [address] [place] [address] Dr Berg [address] [place] [address] PCP - General Internal Medicine 02/21/20 documented as of this encounter
--- OUTSIDE RECORDS SUMMARY | 2025-05-16 12:28 | XMS_ITS | Clinical Summary ---
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 Gender Identity Not on file Sexual Orientation Not on file Plan of Treatment Health Maintenance Due Date Last Done Comments Cervical Cancer Screening Pa p Smear (Age 30 to 64) Every 3 Years 1976 Colorectal Cancer Screening Colonoscopy (10 Years) 1976 Annual Physical 1979 Hepatitis C 1994 DTaP, Tdap and Td Vaccines ( 1 - Tdap) 1995 Hepatitis B Vaccines (1 of 3 - 19+ 3-dose series) 1995 Cervical Cancer Screening Pa p with HPV Testing (Age 30 to 64) Every 5 Years 2006 Cervical Cancer Screening with HPV 2006 Mammogram Screening 2016 COVID-19 Vaccine (2023-2 5 season) 2025 Meningococcal B Vaccine Aged Out No l onger eligible based on patient's age to complete this topic Meningococcal Vaccine Aged Out No ashlie rhett eligible based on patient's age to complete this topic Pneumococcal Vaccine: Pediat rics (0 to 5 Years) and At-Risk Patients (6 to 49 Years) Aged Out No longer eligible b ased on patient's age to complete this topic RSV Immunizations Under 20 Months Aged Out No longer eligible based on patient's age to complete this topic
--- OUTSIDE RECORDS SUMMARY | 2025-05-16 12:28 | XMS_ITS | Encounter Summary ---
Author Organization [facility] Address 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 [place] [address] Pallavi Sinha MD [address] [place] [phone] documented as of this encounter Procedures Procedure Name Priority Date/Time Associated Diagnosis Comments US BIOPHYSICAL PROF WO NST Timed Study 12/17/2007 3:28 PM CDT US BIOPHYSICAL PROF W NST Timed Study 12/10/2007 11:07 AM CDT US OB LTD 1 OR MORE FETUSES Timed Study 12/10/2007 11:07 AM CDT US BIOPHYSICAL PROF WO NST Timed Study 12/06/2007 11:34 AM CDT US OB LTD 1 OR MORE FETUSES Routine 12/06/2007 11:34 AM CDT US OB LTD 1 OR MORE FETUSES Timed Study 12/02/2007 10:13 AM CDT documented in this encounter Results * US BIOPHYSICAL PROF WO NST (12/17/2007 3:28 PM CDT) Anatomical Region Laterality Modality Pelvis Other Narrative 12/17/2007 3:28 PM CDT Results in [facility] Procedure Note 03/01/2009 Results in [facility] Dany Hussein MD US ORDERABLES Final Result * US OB LTD 1 OR MORE FETUSES (12/10/2007 11:07 AM CDT) Anatomical Region Laterality Modality Pelvis Other Narrative 12/10/2007 11:07 AM CDT Results in [facility] Procedure Note 03/01/2009 Results in [facility] us Dany Hussein MD US ORDERABLES Final Result * US BIOPHYSICAL PROFILE (12/10/2007 11:07 AM CDT) Anatomical Region Laterality Modality Pelvis Other Narrative 12/10/2007 11:07 AM CDT Results in [facility] Procedure Note 03/01/2009 Results in [facility] Dany Hussein MD US ORDERABLES Final Result * US BIOPHYSICAL PROF WO NST (12/06/2007 11:34 AM CDT) Anatomical Region Laterality Modality Pelvis Other Narrative 12/06/2007 11:34 AM CDT Results in [facility] Procedure Note 03/01/2009 Results in [facility] us Dany Hussein MD US ORDERABLES Final Result * US OB LTD 1 OR MORE FETUSES (12/06/2007 11:34 AM CDT) Anatomical Region Laterality Modality Pelvis Other Narrative 12/06/2007 11:34 AM CDT Results in [facility] Procedure Note 03/01/2009 Results in [facility] Dany Hussein MD US ORDERABLES Final Result * US OB LTD 1 OR MORE FETUSES (12/02/2007 10:13 AM CDT) Anatomical Region Laterality Modality Pelvis Other Narrative 12/02/2007 10:13 AM CDT Results in [facility] Procedure Note 03/01/2009 Results in [facility] Dany Hussein MD US ORDERABLES Final Result documented in this encounter Visit Diagnoses Diagnosis Other current maternal conditions classifiable elsewhere, antepartum documented in this encounter Care Teams Sieve Grader Tender Relationship Specialty Start Date End Date Serge Ley MD [address] [place] [address] Dr Berg [address] [place] [phone] PCP - General Internal Medicine 02/21/20 documented as of this encounter
--- OUTSIDE RECORDS SUMMARY | 2025-05-16 12:28 | XMS_ITS | Encounter Summary ---
Author Organization [facility] Address 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 [place] [address] Pallavi Sinha MD [address] [place] [address] documented as of this encounter Visit Diagnoses Not on filedocumented in this encounter Care Teams Trucker Hand Relationship Specialty Start Date End Date Serge Ley MD [address] [place] [address] Dr [address] [place] [address] PCP - General Internal Medicine 02/21/20 documented as of this encounter
--- OUTSIDE RECORDS SUMMARY | 2025-05-16 12:28 | XMS_ITS | Encounter Summary ---
Author Organization [facility] Address 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 [place] [address] Pallavi Sinha MD [address] [place] [address] documented as of this encounter Visit Diagnoses Not on filedocumented in this encounter Care Teams Student Life Coordinator Relationship Specialty Start Date End Date Serge Ley MD [address] [place] [address] Dr [address] [place] [address] PCP - General Internal Medicine 02/21/20 documented as of this encounter
--- OUTSIDE RECORDS SUMMARY | 2025-05-16 12:28 | XMS_ITS | Encounter Summary ---
Author Organization [facility] Address [address] [place] [address] Care Team Providers Care Configuration Management Consultant Name Role Phone Serge Ley MD Primary Care Provider Encounter Details Date Type Department Care Team (Latest Contact Info) Description 01/01/2008 Outpatient [address] 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 [place] [address] Pallavi Sinha MD [address] [address] documented as of this encounter Visit Diagnoses Diagnosis Other current maternal conditions classifiable elsewhere, antepartum documented in this encounter Care Teams Configuration Management Consultant Relationship Specialty Start Date End Date Serge Ley MD [address] [place] [address] [address] [place] [phone] PCP - General Internal Medicine 02/21/20 documented as of this encounter
--- OUTSIDE RECORDS SUMMARY | 2025-05-16 12:28 | XMS_ITS | Encounter Summary ---
Author Organization [facility] Address 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 [address] Pallavi Sinha MD [address] [place] [address] documented as of this encounter Procedures Procedure Name Priority Date/Time Associated Diagnosis Comments US BIOPHYSICAL PROF WO NST Timed Study 11/26/2007 2:50 PM CDT US BIOPHYSICAL PROF WO NST Timed Study 11/15/2007 8:13 AM CDT US BIOPHYSICAL PROF WO NST Timed Study 11/01/2007 1:27 PM CDT documented in this encounter Results * US BIOPHYSICAL PROF WO NST (11/26/2007 2:50 PM CDT) Anatomical Region Laterality Modality Pelvis Other Narrative 11/26/2007 2:50 PM CDT Results in [facility] Procedure Note 03/01/2009 Results in [facility] Dany Hussein MD US ORDERABLES Final Result * US BIOPHYSICAL PROF WO NST (11/15/2007 8:13 AM CDT) Anatomical Region Laterality Modality Pelvis Other Narrative 11/15/2007 8:13 AM CDT Results in [facility] Procedure Note 03/01/2009 Results in [facility] Dany Hussein MD US ORDERABLES Final Result * US BIOPHYSICAL PROF WO NST (11/01/2007 1:27 PM CDT) Anatomical Region Laterality Modality Pelvis Other Narrative 11/01/2007 1:27 PM CDT Results in [facility] Procedure Note 03/01/2009 Results in [facility] Dany Hussein MD US ORDERABLES Final Result documented in this encounter Visit Diagnoses Diagnosis Other current maternal conditions classifiable elsewhere, antepartum documented in this encounter Care Teams Chip Bin Conveyor Tender Relationship Specialty Start Date End Date Serge Ley MD [address] [place] [address] Dr Berg [address] [place] [phone] PCP - General Internal Medicine 02/21/20 documented as of this encounter
--- OUTSIDE RECORDS SUMMARY | 2025-05-16 12:28 | XMS_ITS | Patient Health Record ---
Author Organization [employer] Address [address] [facility] [address] [place] [address] Care Team Providers Care Hand Etcher Helper Name Role Phone Toyin FINN, Jessica Primary Care Provider Dany Hamilton Unavailable [phone] Reason For Referral No Information Plan Of Treatment No Information Insurance Providers Payer Name Payer Address Payer Phone Subscriber Number Group Number Insured Name Patient Relationship to Insured Coverage Start Date Coverage End Date [facility] - P[id number] [address] [place] [phone] [id number] Stacy Hampton Self - patient is the insured
--- OUTSIDE RECORDS SUMMARY | 2025-05-16 12:28 | XMS_ITS | Encounter Summary ---
Author Organization [facility] Address 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 [place] [address] Pallavi Sinha MD [address] [place] [address] documented as of this encounter Visit Diagnoses Not on filedocumented in this encounter Care Teams Separator Tender Relationship Specialty Start Date End Date Serge Ley MD [address] [place] [address] Dr Berg [address] [place] [address] PCP - General Internal Medicine 02/21/20 documented as of this encounter
--- OUTSIDE RECORDS SUMMARY | 2025-05-16 12:28 | XMS_ITS | Encounter Summary ---
Author Organization [facility] Address 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 [address] [place] [address] Pallavi Sinha MD [address] [address] documented as of this encounter Visit Diagnoses Not on filedocumented in this encounter Care Teams Paint Grinder Stone Mill Relationship Specialty Start Date End Date Serge Ley MD [address] [place] [address] Dr Berg [address] [place] [phone] PCP - General Internal Medicine 02/21/20 documented as of this encounter
== END 2025-05-16 12:43 | disposition home or self-care (01) ==
PROVIDERS: Emergency Provider Nurse Practitioner
DX: I10 Essential (primary) hypertension (principal); E78.00 Pure hypercholesterolemia, unspecified
CPT/HCPCS: 99202; G0463